=== PATIENT | female | born 1965 | race Two or more races ===

== ENCOUNTER 2016-12-23 20:43 | Emergency (ER) | payer OTHER ==
[~2016-12-23] VITALS: Ht 154.9 cm; Wt 72.1 kg
[~2016-12-23 20:43] MED LIST: ATEN25TA; HYDR25TA4; PANT40TA2 PO; RANI300T7 PO
--- NOTE | 2016-12-23 20:55 | NUR ---
PT AMBULATORY TO ER BED 11. C/O LT KNEE PAIN X 2 WEEKS. PT DENIES ANY RECENT TRAUMA. NO OBVIOUS TRAUMA. PLACED ON MONITOR. VSS. AWAITING MD ALCAZAR.
--- NOTE | 2016-12-23 21:13 | NUR ---
JAXSON COLEMAN AT BEDSIDE FOR EVAL.
[2016-12-23] MEDS ORDERED: KETOROLAC TROMETHAMINE INJ 30 MG/ML VIAL IM ONE (21:30)
[2016-12-23] MEDS ORDERED: KETOROLAC TROMETHAMINE INJ 30 MG/ML VIAL ONE (21:30)
--- NOTE | 2016-12-23 21:32 | NUR ---
RADIOLOGY AT BEDSIDE FOR LT KNEE XRAY.
[2016-12-23] MEDS ORDERED: MORPHINE SULFATE INJ 4 MG/ML DISP.SYRIN ONE (21:50)
[2016-12-23] MEDS ORDERED: MORPHINE SULFATE INJ 2 MG/ML DISP.SYRIN IM ONE (22:00)
--- NOTE | 2016-12-23 22:11 | NUR ---
Patient discharged to home in stable condition. Written and verbal after care instructions given. Patient verbalizes understanding of instruction.
[2016-12-23 22:12] VITALS: BP 136/84
== END 2016-12-23 22:14 | disposition home or self-care (01) ==
LOC: ER 20:47
DX: M25.562 Pain in left knee (principal); G43.909 Migraine, unspecified, not intractable, without status migrainosus; K21.9 Gastro-esophageal reflux disease without esophagitis; F17.210 Nicotine dependence, cigarettes, uncomplicated; Z88.5 Allergy status to narcotic agent; Z88.2 Allergy status to sulfonamides; X58.XXXA Exposure to other specified factors, initial encounter; Y92.89 Other specified places as the place of occurrence of the external cause; Y93.89 Activity, other specified; Y99.8 Other external cause status
CPT/HCPCS: 73564-TC; A4606; J1885; J2270; Z7610